=== PATIENT | male | born 2000 ===

== ENCOUNTER 2022-05-28 22:21 | Inpatient (IN) ==
[2022-05-28 23:09] LABS: Basophils # 0.1 10*3/uL (0.0-0.2); Basophils % 1.1 % (0.0-0.8); Eosinophils # 0.1 10*3/uL (0.0-0.87); Eosinophils % 2.4 % (0.00-10.9); Hematocrit 40.3 VOL% (42.0-52.0); Hemoglobin 14.2 GM/DL (14.0-18.0); Immature Granulocytes % 0.2 %; Immature Granulocytes Absolute 0.01 #; Lymphocytes # 2.6 10*3/uL (1.4-4.0); Lymphocytes % 48.2 % (21.2-54.2); Mean Corpuscular HGB Conc 35.2 GM/DL (32-36); Mean Corpuscular Volume 87.6 FL (87-102); Mean Platelet Volume 10.1 FL (9.6-12.0); Monocytes # 0.4 10*3/uL (0.11-0.8); Monocytes % 8.2 % (1.7-12.7); Neutrophils % 39.9 % (38.7-73.9); Platelet Count 281 T/CUMM (130-400); Red Cell Distribution Width 11.9 % (9.3-17.3); White Blood Count 5.4 T/CUMM (4-12)
[2022-05-28 23:31] LABS: Albumin 4.1 G/DL (3.4-5.0); Bilirubin,Total 0.7 MG/DL (0.20-1.00); Calcium 9.2 MG/DL (8.5-10.1); Osmolality,Calculated 275.7 MOS/KG (273-304); Potassium 3.7 MMOL/L (3.5-5.1); Total Protein 8.2 G/DL (6.4-8.2)
[2022-05-29] MEDS ORDERED: AMIODARONE INJ 450 MG in DEXTROSE 5% 241 ML IV SCH (03:00)
[2022-05-29] MEDS ORDERED: MAGNESIUM SULF RIDER 4 GM/100 ML PREMIX IV PRN (03:07)
[2022-05-29] MEDS ORDERED: MAGNESIUM SULF RIDER 2 GM/50 ML PREMIX IV PRN (03:07)
[2022-05-29] MEDS ORDERED: MORPHINE 2 MG/1 ML SYRINGE IV PRN (03:07)
[2022-05-29] MEDS ORDERED: ONDANSETRON 4 MG/2 ML VIAL IV PRN (03:07)
[2022-05-29 04:03] LABS: Bilirubin,Total 0.6 MG/DL (0.20-1.00); Calcium 9.2 MG/DL (8.5-10.1); Osmolality,Calculated 273.7 MOS/KG (273-304); Potassium 3.5 MMOL/L (3.5-5.1); Total Protein 8.4 G/DL (6.4-8.2)
[2022-05-29 04:22] LABS: Risk Ratio 3.93; Thyroid Stimulating Hormone 5.67 uIU/ml (0.358-3.74); VLDL Cholesterol 15.2 MG/DL
[2022-05-29] MEDS: SODIUM CHLORIDE 0.9% 1,000 ML IV SCH ×2 (05:34→21:04)
[2022-05-29 05:35] LABS: Basophils # 0.1 10*3/uL (0.0-0.2); Basophils % 1.1 % (0.0-0.8); Eosinophils # 0.1 10*3/uL (0.0-0.87); Eosinophils % 1.7 % (0.00-10.9); Hematocrit 40.8 VOL% (42.0-52.0); Hemoglobin 14.5 GM/DL (14.0-18.0); Lymphocytes # 1.8 10*3/uL (1.4-4.0); Mean Corpuscular HGB Conc 35.5 GM/DL (32-36); Mean Corpuscular Volume 87.7 FL (87-102); Monocytes # 0.5 10*3/uL (0.11-0.8); Monocytes % 10.9 % (1.7-12.7); Neutrophils % 48.3 % (38.7-73.9); Platelet Count 246 T/CUMM (130-400); Red Blood Count 4.65 MC/CUMM (3.8-5.5); Red Cell Distribution Width 11.9 % (9.3-17.3); White Blood Count 4.7 T/CUMM (4-12)
[2022-05-29] MEDS ORDERED: POTASSIUM CHLORIDE 20 MEQ TABLET PO ONE (06:36)
[2022-05-29] MEDS ORDERED: carvediloL 25 MG TABLET PO SCH (09:00)
[2022-05-29] MEDS ORDERED: LOSARTAN 50 MG TABLET PO SCH (09:00)
[2022-05-29] MEDS ORDERED: AMIODARONE 200 MG TABLET PO SCH ×2 (09:00→23:00)
[2022-05-29] MEDS: METOPROLOL TARTRATE 25 MG TABLET PO SCH ×2 (09:12→21:04)
[2022-05-29] MEDS: ASPIRIN EC 81 MG TABLET PO SCH (09:12)
[2022-05-29] MEDS: PANTOPRAZOLE 40 MG TABLET PO SCH (09:13)
[2022-05-29] MEDS: MEXILETINE 150 MG CAPSULE PO SCH ×3 (09:13→21:04)
[2022-05-29] MEDS: AMIODARONE INJ 450 MG in DEXTROSE 5% 241 ML IV SCH (09:21)
[2022-05-29] MEDS ORDERED: MAGNESIUM SULF RIDER 2 GM/50 ML PREMIX IV ONE (09:26)
[2022-05-29 11:02] LABS: Bacteria,Urine Occasional /HPF (Few); Mucus,Urine Occasional /LPF (Occasional); RBC,Urine 1 /HPF (0-4)
[2022-05-29 11:03] LABS: Urine Appearance Clear (Clear); Urine Color Yellow (Yellow)
[2022-05-29 11:04] LABS: Bilirubin,Urine Negative (Negative); Blood, Urine Trace mg/dL (Negative); Glucose,Urine (UA) Negative (Negative); Ketones,Urine Negative (Negative); Nitrite,Urine Negative (Negative); Protein,Urine Negative (Negative); Urine Specific Gravity 1.015 (1.001-1.035); Urine Urobilinogen 0.2 eU/dL (<2.0)
[2022-05-29 11:16] LABS: Barbiturates Screen,Urine Negative (Negative); Benzodiazepines Screen,Urine Negative (Negative); Cannabinoid Screen,Urine Positive (Negative); Opiate Screen,Urine Negative (Negative); Phencyclidine Screen,Urine Negative (Negative)
[2022-05-29 12:28] LABS: Hematocrit 40.3 VOL% (42.0-52.0); Hemoglobin 14.1 GM/DL (14.0-18.0); Lymphocytes # 1.2 10*3/uL (1.4-4.0); Lymphocytes % 30.2 % (21.2-54.2); Mean Corpuscular Volume 88.2 FL (87-102); Mean Platelet Volume 9.5 FL (9.6-12.0); Monocytes # 0.5 10*3/uL (0.11-0.8); Monocytes % 12.4 % (1.7-12.7); Neutrophils % 55.4 % (38.7-73.9); Platelet Count 259 T/CUMM (130-400); Red Blood Count 4.57 MC/CUMM (3.8-5.5); Red Cell Distribution Width 11.9 % (9.3-17.3); White Blood Count 4.1 T/CUMM (4-12)
[2022-05-29] MEDS: AMIODARONE 200 MG TABLET PO SCH (12:49)
[2022-05-29] MEDS: ACETAMINOPHEN 325 MG TABLET PO PRN (21:53)
[2022-05-30] MEDS: AMIODARONE INJ 450 MG in DEXTROSE 5% 241 ML IV SCH (00:07)
[2022-05-30 04:21] LABS: Basophils % 0.8 % (0.0-0.8); Eosinophils # 0.1 10*3/uL (0.0-0.87); Eosinophils % 1.7 % (0.00-10.9); Hematocrit 38.8 VOL% (42.0-52.0); Hemoglobin 13.6 GM/DL (14.0-18.0); Immature Granulocytes % 0.3 %; Immature Granulocytes Absolute 0.01 #; Lymphocytes # 1.1 10*3/uL (1.4-4.0); Lymphocytes % 29.7 % (21.2-54.2); Mean Corpuscular HGB Conc 35.1 GM/DL (32-36); Mean Corpuscular Volume 89.8 FL (87-102); Monocytes # 0.6 10*3/uL (0.11-0.8); Monocytes % 17.6 % (1.7-12.7); Neutrophils % 49.9 % (38.7-73.9); Platelet Count 233 T/CUMM (130-400); Red Blood Count 4.32 MC/CUMM (3.8-5.5); Red Cell Distribution Width 11.9 % (9.3-17.3); White Blood Count 3.5 T/CUMM (4-12)
[2022-05-30 04:41] LABS: Calcium 8.7 MG/DL (8.5-10.1); Osmolality,Calculated 276.4 MOS/KG (273-304); Potassium 3.8 MMOL/L (3.5-5.1)
[2022-05-30 04:45] LABS: Eosinophils 1 % (0-10); Lymphocytes 34 % (20-55); Platelet Estimate Adequate; Total Cells Counted 100
[2022-05-30] MEDS: MEXILETINE 150 MG CAPSULE PO SCH ×3 (05:26→22:39)
[2022-05-30] MEDS ORDERED: LOSARTAN 50 MG TABLET PO SCH (09:00)
[2022-05-30] MEDS: PANTOPRAZOLE 40 MG TABLET PO SCH (09:22)
[2022-05-30] MEDS: ASPIRIN EC 81 MG TABLET PO SCH (09:22)
[2022-05-30] MEDS: METOPROLOL TARTRATE 25 MG TABLET PO SCH ×2 (09:22→22:39)
[2022-05-30] MEDS: AMIODARONE 200 MG TABLET PO SCH (09:22)
[2022-05-30] MEDS: LOSARTAN 50 MG TABLET PO SCH (09:22)
[2022-05-30] MEDS: ACETAMINOPHEN 325 MG TABLET PO PRN (15:24)
[2022-05-31 04:58] LABS: Basophils % 0.6 % (0.0-0.8); Eosinophils % 0.6 % (0.00-10.9); Hematocrit 39.3 VOL% (42.0-52.0); Hemoglobin 13.8 GM/DL (14.0-18.0); Immature Granulocytes % 0.3 %; Immature Granulocytes Absolute 0.01 #; Lymphocytes % 30.2 % (21.2-54.2); Mean Corpuscular HGB Conc 35.1 GM/DL (32-36); Mean Corpuscular Volume 88.1 FL (87-102); Mean Platelet Volume 9.7 FL (9.6-12.0); Monocytes # 0.7 10*3/uL (0.11-0.8); Monocytes % 19.1 % (1.7-12.7); Neutrophils % 49.2 % (38.7-73.9); Platelet Count 222 T/CUMM (130-400); Red Blood Count 4.46 MC/CUMM (3.8-5.5); Red Cell Distribution Width 11.8 % (9.3-17.3); White Blood Count 3.4 T/CUMM (4-12)
[2022-05-31 05:17] LABS: Calcium 8.7 MG/DL (8.5-10.1); Osmolality,Calculated 268.1 MOS/KG (273-304); Potassium 3.2 MMOL/L (3.5-5.1)
[2022-05-31 05:34] LABS: Band Neutrophils 1 % (0-10); Lymphocytes 30 % (20-55); Microcytosis Slight; Total Cells Counted 100
[2022-05-31] MEDS: MEXILETINE 150 MG CAPSULE PO SCH (07:35)
[2022-05-31] MEDS: AMIODARONE 200 MG TABLET PO SCH (08:57)
[2022-05-31] MEDS: ASPIRIN EC 81 MG TABLET PO SCH (08:58)
[2022-05-31] MEDS: PANTOPRAZOLE 40 MG TABLET PO SCH (08:58)
[2022-05-31] MEDS: LOSARTAN 50 MG TABLET PO SCH (08:58)
[2022-05-31] MEDS ORDERED: POTASSIUM CHLORIDE 20 MEQ TABLET PO SCH (09:02)
[2022-05-31 12:38] VITALS: BP 148/67
== END 2022-05-31 12:22 | disposition home or self-care (01) | DRG 201 ==
LOC: N.ED 22:21 → N.CC 05-29 02:37 → N.TELES 05-30 15:49
PROVIDERS: ADMIT Internal Medicine Cardiovascular Disease; ATTEND Internal Medicine Cardiovascular Disease

== ENCOUNTER 2022-06-01 06:20 | Inpatient (IN) ==
[2022-06-01 06:53] LABS: Basophils % 0.9 % (0.0-0.8); Eosinophils % 0.7 % (0.00-10.9); Hematocrit 43.3 VOL% (42.0-52.0); Hemoglobin 15.1 GM/DL (14.0-18.0); Immature Granulocytes % 0.2 %; Immature Granulocytes Absolute 0.01 #; Lymphocytes # 1.5 10*3/uL (1.4-4.0); Lymphocytes % 32.4 % (21.2-54.2); Mean Corpuscular HGB Conc 34.9 GM/DL (32-36); Mean Corpuscular Volume 87.8 FL (87-102); Monocytes # 0.7 10*3/uL (0.11-0.8); Monocytes % 14.9 % (1.7-12.7); Neutrophils % 50.9 % (38.7-73.9); Platelet Count 271 T/CUMM (130-400); Red Blood Count 4.93 MC/CUMM (3.8-5.5); Red Cell Distribution Width 11.8 % (9.3-17.3); White Blood Count 4.5 T/CUMM (4-12)
[2022-06-01 07:09] LABS: Albumin 4.1 G/DL (3.4-5.0); Bilirubin,Total 0.4 MG/DL (0.20-1.00); Calcium 9.2 MG/DL (8.5-10.1); Osmolality,Calculated 277.5 MOS/KG (273-304); Total Protein 8.6 G/DL (6.4-8.2)
[2022-06-01] MEDS ORDERED: AMIODARONE INJ 450 MG in DEXTROSE 5% 241 ML IV SCH ×2 (09:00→12:30)
[2022-06-01] MEDS ORDERED: MAGNESIUM SULF RIDER 2 GM/50 ML PREMIX IV PRN (09:55)
[2022-06-01] MEDS ORDERED: MAGNESIUM SULF RIDER 4 GM/100 ML PREMIX IV PRN (09:55)
[2022-06-01] MEDS: ENOXAPARIN 40 MG/0.4 ML SYRINGE SUBCUT SCH (10:30)
[2022-06-01] MEDS: SODIUM CHLORIDE 0.9% 1,000 ML IV SCH (10:37)
[2022-06-01 10:39] VITALS: BP 153/99
[2022-06-01] MEDS: MORPHINE 2 MG/1 ML SYRINGE IV PRN ×2 (12:12→16:25)
[2022-06-01] MEDS ORDERED: LIDOCAINE DRIP 2,000 MG/250 ML PREMIX IV SCH (12:30)
[2022-06-01] MEDS ORDERED: ACETAMINOPHEN 500 MG TABLET PO PRN (13:04)
[2022-06-01] MEDS: MEXILETINE 150 MG CAPSULE PO SCH ×2 (14:34→22:29)
[2022-06-01] MEDS ORDERED: hydrALAZINE 20 MG/1 ML VIAL IV ONE (15:38)
[2022-06-01] MEDS ORDERED: MAGNESIUM SULF RIDER 4 GM/100 ML PREMIX IV ONE (17:08)
[2022-06-01] MEDS ORDERED: hydrALAZINE 20 MG/1 ML VIAL IV PRN (17:08)
[2022-06-01] MEDS ORDERED: POTASSIUM CHLORIDE 20 MEQ TABLET PO ONE (17:08)
[2022-06-01 19:29] LABS: Arterial Base Excess iSTAT -11 MMOL/L (-2.5-2.5); Arterial Bicarbonate iSTAT 15.4 MMOL/L (20-26); Arterial O2 Saturation iSTAT 97 % (95-100); Arterial PCO2 iSTAT 37 MM HG (35-48); Arterial PO2 iSTAT 112 MM HG (80-95); Arterial Total CO2 iSTAT 17 MMO/L (23-27); Arterial pH iSTAT 7.224 (7.35-7.45)
[2022-06-01] MEDS ORDERED: METOPROLOL TARTRATE 25 MG TABLET PO SCH (21:00)
[2022-06-02] MEDS: MORPHINE 2 MG/1 ML SYRINGE IV PRN (00:34)
[2022-06-02] MEDS: SODIUM CHLORIDE 0.9% 1,000 ML IV SCH (02:05)
[2022-06-02] MEDS: MEXILETINE 150 MG CAPSULE PO SCH (05:41)
[2022-06-02] MEDS ORDERED: amLODIPine 5 MG TABLET PO SCH (09:00)
[2022-06-02] MEDS ORDERED: ASPIRIN EC 81 MG TABLET PO SCH (09:00)
[2022-06-02] MEDS ORDERED: LOSARTAN 50 MG TABLET PO SCH (09:00)
[2022-06-02 10:03] LABS: Basophils % 0.8 % (0.0-0.8); Eosinophils # 0.1 10*3/uL (0.0-0.87); Eosinophils % 1.5 % (0.00-10.9); Hematocrit 43.1 VOL% (42.0-52.0); Hemoglobin 14.9 GM/DL (14.0-18.0); Immature Granulocytes % 0.3 %; Immature Granulocytes Absolute 0.01 #; Lymphocytes # 1.3 10*3/uL (1.4-4.0); Lymphocytes % 32.3 % (21.2-54.2); Mean Corpuscular HGB Conc 34.6 GM/DL (32-36); Mean Corpuscular Volume 89.4 FL (87-102); Mean Platelet Volume 9.8 FL (9.6-12.0); Monocytes # 0.5 10*3/uL (0.11-0.8); Monocytes % 12.8 % (1.7-12.7); Neutrophils % 52.3 % (38.7-73.9); Platelet Count 245 T/CUMM (130-400); Red Blood Count 4.82 MC/CUMM (3.8-5.5); Red Cell Distribution Width 11.9 % (9.3-17.3)
[2022-06-02 10:17] LABS: Calcium 8.5 MG/DL (8.5-10.1); Osmolality,Calculated 274.5 MOS/KG (273-304)
[2022-06-02] MEDS: ENOXAPARIN 40 MG/0.4 ML SYRINGE SUBCUT SCH (10:54)
== END 2022-06-02 12:20 | disposition hospice, home (50) | DRG 201 ==
LOC: N.ED 06:20 → N.CC 09:55
PROVIDERS: ADMIT Internal Medicine Cardiovascular Disease; ATTEND Internal Medicine Cardiovascular Disease